=== PATIENT | female | born 1970 ===

== ENCOUNTER 2017-02-09 12:15 | Day surgery (SDC) | payer BC ==
[2017-02-09 12:52] LABS: CALCIUM 9.2 mg/dL (8.4-10.5); POTASSIUM 4.2 mmol/L (3.6-5.0)
[2017-02-09 12:53] LABS: BASO # 0.04 K/mm3 (0.0-2.0); BASO % 0.6 % (0.0-3.0); EOS # 0.2 (0.0-0.7); EOS % 2.2 % (1.5-5.0); GRAN # 4.59 (1.4-6.5); HEMATOCRIT 29.4 % (36.0-48.0); LYMPH # 1.6 (1.2-3.4); MEAN CELL VOLUME 70.2 fl (80.0-105.0); MEAN CORPUSCULAR HEMOGLOBIN 22.2 pg (25.0-35.0); MEAN CORPUSCULAR HGB CONC 31.6 g/dl (31.0-37.0); MEAN PLATELET VOLUME 8.9 fl (7.0-11.0); MONO # 0.4 (0.1-0.6); MONO % 5.2 % (1.0-6.0); RED CELL DISTRIBUTION WIDTH 15.5 % (11.5-14.5); WHITE BLOOD COUNT 6.8 10^3/ul (4.5-11.0)
[2017-02-09 13:01] VITALS: O2SAT 99
[2017-02-09 13:27] VITALS: BMI 21.1
[2017-02-09 13:27] LABS: INR 0.98 (0.93-1.08); PARTIAL THROMBOPLASTIN TIME 28.8 Seconds (23.7-30.8)
[2017-02-09] MEDS ORDERED: Lidocaine 2% Inj (20ml) ONE (13:31)
[2017-02-09] MEDS ORDERED: Iodixanol 320 MG/ML 100 ML BOTTLE IV ONE (14:15)
[2017-02-09 14:43] VITALS: RESP 16
[2017-02-09 16:02] VITALS: BP 132/72; PULSE 61; TEMP 98.7
--- NOTE | 2017-02-09 19:00 | VASCULAR ---
PROCEDURE: Ultrasound and fluoroscopically placed left upper extremity PICC line. HISTORY: Lyme disease. Long-term IV antibiotics. Needs PICC line. PHYSICIAN(S): Vahe Woods MD. TECHNIQUE: The relative risks and indications of the procedure were explained to the patient and consent obtained. The patient was placed supine on the arteriogram table and the left arm prepped and draped in the usual sterile fashion. A tourniquet was applied to the left axilla. 1% Xylocaine was used to anesthetize the skin and soft tissues at the puncture site above the elbow. The left basilic vein was punctured under direct ultrasound guidance with a micropuncture set. A 0.018 guidewire was advanced centrally and used to measure the length to the SVC/RA junction. A 5 [place] single-lumen PICC line 39 cm long was advanced to the SVC/RA junction. The catheter was flushed and secured. The patient tolerated the procedure well. IMPRESSION: 1. Ultrasound and fluoroscopically placed left upper extremity PICC line. A 5 [place] single-lumen PICC line 39 cm long was advanced to the SVC/RA junction.
== END 2017-02-09 16:00 | disposition home or self-care (01) ==
LOC: OPSURG 12:15
PROVIDERS: ATTEND Radiology Vascular & Interventional Radiology
DX: A69.20 Lyme disease, unspecified (principal); Z79.2 Long term (current) use of antibiotics; I10 Essential (primary) hypertension; E03.9 Hypothyroidism, unspecified; Q61.3 Polycystic kidney, unspecified
CPT/HCPCS: 36415; 36569; 76937; 77001; 80048; 85025; 85610; 85730; C1751; C1769; J1644; Q9967

== ENCOUNTER 2017-07-08 18:29 | Emergency (ER) | payer BC ==
[2017-07-08 18:30] VITALS: BMI 21.1
[2017-07-08 18:43] VITALS: BP 125/80
[2017-07-08] MEDS ORDERED: Sodium Chloride 0.9% 500 ML IV SCH (19:45)
[2017-07-08 20:22] LABS: BASO # 0.01 K/mm3 (0.0-2.0); BASO % 0.2 % (0.0-3.0); EOS % 0.7 % (1.5-5.0); GRAN # 3.64 (1.4-6.5); GRAN % 83.4 % (50.0-68.0); HEMOGLOBIN 9.2 g/dL (12.0-16.0); LYMPH # 0.5 (1.2-3.4); LYMPH % 11.4 % (22.0-35.0); MEAN CELL VOLUME 73.2 fl (80.0-105.0); MEAN CORPUSCULAR HEMOGLOBIN 23.1 pg (25.0-35.0); MEAN CORPUSCULAR HGB CONC 31.5 g/dl (31.0-37.0); MEAN PLATELET VOLUME 9.5 fl (7.0-11.0); MONO # 0.2 (0.1-0.6); MONO % 4.3 % (1.0-6.0); RBC 3.99 10^6/uL (3.5-6.1); RED CELL DISTRIBUTION WIDTH 15.4 % (11.5-14.5); WHITE BLOOD COUNT 4.4 10^3/ul (4.5-11.0)
[2017-07-08 20:29] LABS: ALB/GLOB RATIO 1.3 (1.1-1.8); ALBUMIN 3.7 g/dL (3.0-4.8); CALCIUM 9.5 mg/dL (8.4-10.5)
[2017-07-08] MEDS ORDERED: Oseltamivir 6 MG/ML PO STA (20:53)
--- NOTE | 2017-07-08 21:19 | ED PDOC ---
Arrival/HPI - General Chief Complaint: Flu-like Symptoms Time Seen by Provider: 07/08/17 18:50 Historian: Patient, Spouse - History of Present Illness Narrative History of Present Illness (Text): 07/08/17 21:16 46-year-old female with a history of polycystic kidney disease with a GFR of 33- 37 presents today with cough, nasal congestion, sore throat, body aches and fevers for the past 3 days. Patient states her child is sick at home with similar symptoms. Patient complaining of nasal congestion with sore throat. Patient states she's had a dry cough for the past 3 days. Patient denies urinary symptoms. Denies chest pain or shortness of breath. Patient denies abdominal pain. No dizziness. Patient states she took Tylenol for fever at 3pm today. Symptom Onset: Gradual Symptom Course: Worsening Quality: Aching Severity Level: 5 Past Medical History - Provider Review Nursing Documentation Reviewed: Yes - Travel History Have you recently traveled outside [place] w/in the past 3 mons?: No - Infectious Disease Hx of Infectious Diseases: None - Tetanus Immunization Tetanus Immunization: Unknown - Cardiac Hx Cardiac Disorders: Yes Hx Hypertension: Yes - Pulmonary Hx Respiratory Disorders: Yes Hx Asthma: Yes - Neurological Hx Neurological Disorder: Yes Hx Dizziness: Yes - HEENT Hx HEENT Disorder: Yes (wears glasses) - Renal Hx Renal Disorder: Yes (Polycystic Kidney Disease) - Endocrine/Metabolic Hx Endocrine Disorders: Yes Hx Hypothyroidism: Yes - Hematological/Oncological Hx Blood Disorders: Yes Hx Anemia: Yes Hx Blood Transfusions: No - Integumentary Hx Dermatological Disorder: No - Musculoskeletal/Rheumatological Hx Musculoskeletal Disorders: No - Gastrointestinal Hx Gastrointestinal Disorders: Yes - Genitourinary/Gynecological Hx Genitourinary Disorders: No - Psychiatric Hx Psychophysiologic Disorder: No Hx Substance Use: No - Past Surgical History Past Surgical History: Non-Contributing - Surgical History Hx Hysterectomy: Yes Other/Comment: HIATAL HERNIA REPAIR - Anesthesia Hx Anesthesia Reactions: No Hx Malignant Hyperthermia: No - Suicidal Assessment Feels Threatened In Home Enviroment: No Family/Social History - Physician Review Nursing Documentation Reviewed: Yes Family/Social History: Unknown Family HX Smoking Status: Never Smoked Hx Alcohol Use: No Hx Substance Use: No Hx Substance Use Treatment: No Allergies/Home Meds Allergies/Adverse Reactions: Allergies codeine Adverse Reaction (Verified 07/08/17 18:31) VOMITING doxycycline Adverse Reaction (Verified 07/08/17 18:31) SHORTNESS OF BREATH sulfamethoxazole [From Bactrim] Adverse Reaction (Verified 07/08/17 18:31) SHORTNESS OF BREATH Home Medications: Home Meds Medication Instructions Recorded Confirmed Diltiazem HCl [Cartia Xt] 300 mg PO DAILY 05/19/13 07/08/17 Paricalcitol [Zemplar] 1 mcg PO QOTHERDAY 05/19/13 07/08/17 Dulera 200 Mcg/5 Mcg Inhaler 200 mg IH PRN PRN 03/02/16 07/08/17 Ferrous Sulfate 25 mg PO BID 03/02/16 07/08/17 Flovent Hfa 110 mg IH PRN PRN 03/02/16 07/08/17 Levothyroxine [Synthroid] 100 mcg PO DAILY 02/09/17 Liothyronine [Cytomel] 5 mcg PO DAILY 07/08/17 07/08/17 Losartan [Cozaar] 100 mg PO DAILY 07/08/17 07/08/17 cloNIDine [Catapres] 1 tab PO PRN PRN 07/08/17 07/08/17 Review of Systems - Review of Systems Constitutional: Fatigue, Fevers ENT: Sore Throat, Sinus Congestion Respiratory: Cough Cardiovascular: absent: Chest Pain, Palpitations Gastrointestinal: absent: Abdominal Pain, Nausea, Vomiting Musculoskeletal: absent: Arthralgias, Back Pain, Neck Pain Skin: absent: Rash, Pruritis Neurological: Headache. absent: Dizziness Psychiatric: absent: Anxiety, Depression, Suicidal Ideation Physical Exam Vital Signs Reviewed: Yes Vital Signs Temp Pulse Resp BP Pulse Ox 07/08/17 18:41 99.4 F 79 17 125/80 99 Temperature: Afebrile Blood Pressure: Normal Pulse: Regular Respiratory Rate: Normal Appearance: Positive for: Well-Appearing, Non-Toxic, Comfortable Pain Distress: None Mental Status: Positive for: Alert and Oriented X 3 - Systems Exam Head: Present: Atraumatic Extroacular Muscles: Present: EOMI Conjunctiva: Present: Normal Ears: Present: Normal, NORMAL TM Mouth: Present: Moist Mucous Membranes, Normal Lips, Normal Tounge. No: Drooling, Trismus Pharnyx: Present: Normal. No: ERYTHEMA, EXUDATE, TONSILS ENLARGED, Peritonsilar Swelling, Uvular Deviation, Muffled/Hoarse Voice Nose (Internal): Present: Normal Inspection Neck: Present: Normal Range of Motion, Trachea Midline. No: Lymphadenopathy Respiratory/Chest: Present: Clear to Auscultation, Good Air Exchange. No: Respiratory Distress, Accessory Muscle Use Cardiovascular: Present: Regular Rate and Rhythm, Normal S1, S2. No: Murmurs Abdomen: Present: Normal Bowel Sounds. No: Tenderness, Distention, Peritoneal Signs, Rebound, Guarding Upper Extremity: Present: Normal ROM Lower Extremity: Present: Normal ROM Neurological: Present: GCS=15, Speech Normal Skin: Present: Warm, Dry, Normal Color. No: Rashes Psychiatric: Present: Alert, Oriented x 3 Medical Decision Making ED Course and Treatment: 07/08/17 21:19 Patient is nontoxic well-appearing in no distress. Vital signs are stable. Patient with flulike symptoms to Tylenol around 3 PM today CBC: White blood cell count 4.4 CMP creatinine 1.5 GFR 37 Chest x-ray shows no infiltrate or effusion, no cardiomegaly Rapid flu test positive Due to patient's low GFR; patient will need renal dosing of Tamiflu. Tamiflu 30 mg given by mouth. I discussed the results in depth with the patient. I advised follow up with primary care physician within the next 2 days. I advised increase fluids and return if symptoms worsen persist or if new symptoms develop. Advised taking Tylenol every 4 hours as needed for fever reduction. Advised Tamiflu twice daily 5 days Patient with significant past medical history stressed the importance of close follow-up with primary care physician. Patient verbalizes understanding of discharge instructions and need for immediate followup. IMPRESSION; influenza Tylenol every 4 hours as needed for pain Tamiflu twice daily 5 days Increase fluids Followup with primary care physician the next 2 days Return if symptoms worsen persist or if new symptoms develop: Continued high fevers, dizziness, weakness, nausea or vomiting, chest pain or shortness of breath or if any other concerning symptoms develop - Lab Interpretations Lab Results: 07/08/17 20:04 07/08/17 20:04 Lab Results 07/08/17 20:04: WBC 4.4 L D, RBC 3.99, Hgb 9.2 L, Hct 29.2 L, MCV 73.2 L D, MCH 23.1 L, MCHC 31.5, RDW 15.4 H, Plt Count 171, MPV 9.5, Gran % 83.4 H, Lymph % ( Auto) 11.4 L, [place] % (Auto) 4.3, Eos % (Auto) 0.7 L, Baso % (Auto) 0.2, Gran # 3.64, Lymph # (Auto) 0.[address] L, [place] # (Auto) 0.2, Eos # (Auto) 0.0, Baso # (Auto) 0.01 07/08/17 20:04: Sodium 132, Potassium 3.6, Chloride 96 L, Carbon Dioxide 25, Anion Gap 15, BUN 19, Creatinine 1.5 H, Est GFR ( Amer) 45, Est GFR (Non- Af Amer) 37, Random Glucose 88, Calcium 9.5, Total Bilirubin 0.5, AST 93 H, ALT 71 H, Alkaline Phosphatase 83, Total Protein 6.5, Albumin 3.7, Globulin 2.8, Albumin/Globulin Ratio 1.3 07/08/17 18:55: Influenza Typ A,B (EIA) Pos for influenza a H - RAD Interpretation Radiology Orders: 07/08/17 19:27 CHEST TWO VIEWS (PA/LAT) [RAD] Stat - Medication Orders Current Medication Orders: Sodium Chloride (Sodium Chloride 0.9%) 500 mls @ 100 mls/hr IV .Q5H GERI Last Admin: 07/08/17 20:33 Dose: 100 mls/hr eMAR Start Stop Document 07/08/17 20:33 SS (Rec: 07/08/17 20:33 [place] [facility] [id number] Intravenous Solution Start Date 07/08/17 Start Time 20:21 Discontinued Medications Acetaminophen (Tylenol 325mg Tab) 975 mg PO STAT STA Stop: 07/08/17 18:51 Last Admin: 07/08/17 19:01 Dose: Not Given Non-Admin Reason: Patient Refused MAR Pain/Vitals Document 07/08/17 19:01 GMD (Rec: 07/08/17 19:01 [facility] [facility] [id number] Pain Reassessment Is This A Pain ReAssessment? No Acetaminophen (Tylenol 325mg Tab) 975 mg PO STAT STA Stop: 07/08/17 20:52 Last Admin: 07/08/17 21:03 Dose: 975 mg MAR Pain/Vitals Document 07/08/17 21:03 SS (Rec: 02/09/18 21:03 [place] [facility] [id number] Pain Reassessment Is This A Pain ReAssessment? No Sleep Is patient sleeping during reassessment? No Presence of Pain Presence of Pain Yes Location Pain Location Body Drive [employer] Oseltamivir Phosphate (Tamiflu Susp) 30 mg PO STAT STA PRN Reason: Protocol Stop: 07/08/17 20:54 Disposition/Present on Arrival - Present on Arrival Any Indicators Present on Arrival: No History of DVT/PE: No History of Uncontrolled Diabetes: No Urinary Catheter: No History of Decub. Ulcer: No History Surgical Site Infection Following: None - Disposition Have Diagnosis and Disposition been Completed?: Yes Diagnosis: Influenza Disposition: HOME/ ROUTINE Disposition Time: 21:23 Patient Plan: Discharge Condition: GOOD Discharge Instructions (ExitCare): Influenza (ED) Additional Instructions: Tylenol every 4 hours as needed for pain Tamiflu twice daily 5 days Increase fluids Followup with primary care physician the next 2 days Return if symptoms worsen persist or if new symptoms develop: Continued high fevers, dizziness, weakness, nausea or vomiting, chest pain or shortness of breath or if any other concerning symptoms develop Prescriptions: Oseltamivir Phosphate [Tamiflu] 30 mg PO BID #10 capsule Referrals: Jennifer Rae MD [Staff Provider] - Follow up with primary Forms: [facility] (Belarusian), WORK NOTE
[2017-07-08 21:58] VITALS: PULSE 85; RESP 18; TEMP 99.3; O2SAT 95
--- NOTE | 2017-07-09 09:43 | RAD ---
HISTORY: cough/fever COMPARISON: 06/30/2016. TECHNIQUE: Chest PA and lateral FINDINGS: LUNGS: No active pulmonary disease. PLEURA: No significant pleural effusion identified. No pneumothorax apparent. CARDIOVASCULAR: No radiographic findings to suggest acute or significant cardiovascular disease. OSSEOUS STRUCTURES: No significant abnormalities. VISUALIZED UPPER ABDOMEN: Normal. OTHER FINDINGS: None. IMPRESSION: No active disease. No significant interval change compared to the prior examination(s).
== END 2017-07-08 22:25 | disposition home or self-care (01) ==
LOC: ED 18:29
DX: J11.1 Influenza due to unidentified influenza virus with other respiratory manifestations (principal)
CPT/HCPCS: 71046; 80053; 85025; 87804; 99283; J7040